=== PATIENT | female | born 1990 | race Caucasian/White ===

== ENCOUNTER 2019-04-12 03:23 | Emergency (ER) | payer SELFPAY ==
--- NOTE | 2019-04-12 03:51 | ED Physician Documentation ---
General Adult - HISTORIAN Historian: patient - HPI Stated Complaint: numbness Chief Complaint: General Adult - ROS CONST: no problems - PAST HX Past History: hypertension, other (ventricular ) Allergies/Adverse Reactions: Allergies Allergy/AdvReac Type Severity Reaction Status Date / Time buspirone [From BuSpar] Allergy Verified 04/12/19 03:56 red dye Allergy Verified 04/12/19 03:56 Home Medications: Ambulatory Orders Medication Instructions Recorded Aspirin [Aspir-Low] 81 mg PO DAILY 04/12/19 Atorvastatin Calcium 40 mg PO DAILY 04/12/19 Clopidogrel Bisulfate [Clopidogrel] 75 mg PO DAILY 04/12/19 Cyclobenzaprine HCl [Flexeril] 10 mg PO DAILY 04/12/19 lamoTRIgine [Lamictal] 100 mg PO HS 04/12/19 - SOCIAL HX Smoking History: cigarettes Alcohol Use: none Drug Use: none - FAMILY HX Family History: No - REVIEWED ASSESSMENTS Nursing Assessment Reviewed: Yes Vitals Reviewed: Yes Progress - Progress Progress: 0355: discussed case with the pt. She states she was evaluated by EMS and they told her to come here due to our affiliation with the [facility] [place] - after discussion on the fact we are not affiliated she states "well I should just go there and you are just an [employer] and I need a specialist" - AMA form offered and she would like to sign [facility] General Adult Physical Exam - PHYSICAL EXAM GENERAL APPEARANCE: no distress NEURO: oriented X3 Discharge Clincal Impression: Numbness High blood pressure Qualifiers: Hypertension type: essential hypertension Qualified Code(s): I10 - Essential (primary) hypertension Disposition: AGAINST MEDICAL ADVICE Date of Decison to Admit: 04/12/19 Decision Time: 04:00
[2019-04-12 05:37] VITALS: BP 136/106
== END 2019-04-12 04:00 | disposition left against medical advice (07) ==
LOC: ED 03:23
DX: I10 Essential (primary) hypertension (principal); R20.0 Anesthesia of skin
CPT/HCPCS: 99281; S1016